=== PATIENT | female | born 1980 | race Two or more races ===

== ENCOUNTER 2018-07-13 10:13 | Emergency (ER) | payer OTHER ==
[~2018-07-13] VITALS: Ht 167.6 cm; Wt 117.9 kg
[2018-07-13 10:40] VITALS: BP 164/61
== END 2018-07-13 11:03 | disposition home or self-care (01) ==
LOC: ER 10:16
DX: M79.641 Pain in right hand (principal)

== ENCOUNTER 2019-07-19 09:35 | Emergency (ER) | payer MEDICAID, OTHER ==
[~2019-07-19] VITALS: Ht 167.6 cm; Wt 113.4 kg
[2019-07-19 09:56] VITALS: BP 140/83
== END 2019-07-19 10:30 | disposition home or self-care (01) ==
LOC: ER 09:35
DX: H60.91 Unspecified otitis externa, right ear (principal)

== ENCOUNTER 2019-07-26 10:31 | Emergency (ER) | payer MEDICAID ==
[~2019-07-26] VITALS: Ht 167.6 cm; Wt 113.4 kg
[2019-07-26] MEDS ORDERED: cefTRIAXone SOD 1,000 MG VL IM ONE (12:15)
[2019-07-26 12:38] VITALS: BP 123/74
== END 2019-07-26 12:49 | disposition home or self-care (01) ==
LOC: ER 10:31
DX: J02.9 Acute pharyngitis, unspecified (principal); H66.93 Otitis media, unspecified, bilateral; E66.01 Morbid (severe) obesity due to excess calories; Z68.41 Body mass index [BMI] 40.0-44.9, adult; Z87.891 Personal history of nicotine dependence
CPT/HCPCS: 96372; 99283; J0696

== ENCOUNTER 2019-09-22 11:39 | Emergency (ER) | payer MEDICAID ==
[~2019-09-22] VITALS: Ht 167.6 cm; Wt 127.0 kg
[2019-09-22 12:30] VITALS: BP 105/71
== END 2019-09-22 13:09 | disposition home or self-care (01) ==
LOC: ER 11:42
DX: J20.9 Acute bronchitis, unspecified (principal); K04.7 Periapical abscess without sinus